=== PATIENT | male | born 1960 | race Two or more races ===

== ENCOUNTER 2025-04-13 11:16 | Day surgery (SDC) | payer OTHER ==
[~2025-04-13] VITALS: Ht 167.6 cm; Wt 67.2 kg
[~2025-04-13 11:16] MED LIST: BUPIVACAINE/EPI/PF 0.5% 30 ML VIAL ONE
[2025-04-13] MEDS ORDERED: PROPOFOL 1% 20 ML VIAL IVP ONE (12:00)
[2025-04-13] MEDS ORDERED: CeFAZolin SODIUM 1 GM VIAL ONE (12:00)
[2025-04-13] MEDS ORDERED: FentaNYL CITRATE PF 100 MCG/2 ML VIAL ONE (12:00)
[2025-04-13] MEDS ORDERED: KETOROLAC TROMETHAMINE 60 MG/2 ML VIAL IM ONE (12:00)
[2025-04-13] MEDS ORDERED: DEXAMETHASONE SOD PHOS 4 MG/ML VIAL ONE (12:00)
[2025-04-13] MEDS ORDERED: SUGAMMADEX SODIUM 200 MG/2 ML VIAL IVP ONE (12:00)
[2025-04-13] MEDS ORDERED: MORPHINE SULFATE 4 MG/ML SYRINGE ONE (12:00)
[2025-04-13] MEDS ORDERED: ACETAMINOPHEN/ISO-OSM 1000 MG/100 ML BOTTLE IV ONE (12:00)
[2025-04-13] MEDS ORDERED: 0.9% SODIUM CHLORIDE 10 ML VIAL ONE (12:00)
[2025-04-13] MEDS ORDERED: ROCURONIUM BROMIDE 10 MG/ML 5 ML VIAL ONE (12:00)
[2025-04-13] MEDS ORDERED: MIDAZOLAM HCL 2 MG/2 ML VIAL ONE (12:00)
[2025-04-13] MEDS ORDERED: ONDANSETRON HCL 4 MG/2 ML VIAL ONE (12:00)
[2025-04-13] MEDS ORDERED: LIDOCAINE/PF 2% 5 ML VIAL ONE (12:00)
[2025-04-13] MEDS: RINGERS SOLUTION,LACTATED 1,000 ML IV ONE (12:31)
[2025-04-13] MEDS: ETHYL ALCOHOL 62% ANTISEPTIC NASAL SANITIZER 0.6 ML AMPUL NASAL ONE (12:31)
[2025-04-13] MEDS: CHLORHEXIDINE GLUCONATE 2% TOWELETTE [2'S/6'S] TP ONE (12:31)
[2025-04-13] MEDS ORDERED: RINGERS SOLUTION,LACTATED 1,000 ML IV ONE (13:26)
[2025-04-13] MEDS ORDERED: FentaNYL CITRATE PF 100 MCG/2 ML VIAL IVP PRN (14:15)
[2025-04-13] MEDS ORDERED: HYDROmorphone HCL 2 MG/ML SYRINGE IVP PRN (14:15)
[2025-04-13] MEDS ORDERED: MEPERIDINE-PF 25 MG/ML VIAL IVP PRN (14:15)
[2025-04-13] MEDS: BUPIVACAINE HCL/PF 0.5% 30 ML VIAL ONE (14:18)
[2025-04-13] MEDS: BUPIVACAINE LIPOSOME/PF 1.3%-13.3MG/ML SUSP 20 ML VIAL INJ ONE (14:19)
[2025-04-13] MEDS ORDERED: OxyCODONE HCL/ACETAMINOPHEN 5-325 MG TABLET ONE (15:51)
[2025-04-13] MEDS: OxyCODONE HCL/ACETAMINOPHEN 5-325 MG TABLET PO ONE (16:00)
[2025-04-13] MEDS ORDERED: OXYGEN THERAPY IH SCH (20:00)
== END 2025-04-13 16:40 | disposition home or self-care (01) ==
LOC: SURGERY 11:16
PROVIDERS: ATTEND Specialist
DX: M75.41 Impingement syndrome of right shoulder (principal); M65.811 Other synovitis and tenosynovitis, right shoulder; S46.011A Strain of muscle(s) and tendon(s) of the rotator cuff of right shoulder, initial encounter; X58.XXXA Exposure to other specified factors, initial encounter; Y93.89 Activity, other specified; Y92.89 Other specified places as the place of occurrence of the external cause; Y99.8 Other external cause status; Z87.891 Personal history of nicotine dependence; Z98.52 Vasectomy status; Z20.822 Contact with and (suspected) exposure to COVID-19
CPT/HCPCS: 29827; 29826; J0666; J1885; J3490 ×5; J2704; J0690; J1100; J3010; J2250; J2270; J2405; J7120; J0131; C1713